=== PATIENT | female | born 1940 | race Caucasian/White ===

== ENCOUNTER → 2017-05-08 | Outpatient (CLI) | payer OTHER, BC | LOC: CIMAGING 15:40 | PROVIDERS: ATTEND Family Medicine | DX: S69.92XS Unspecified injury of left wrist, hand and finger(s), sequela (principal) | CPT/HCPCS: 73110-PO ==

== ENCOUNTER → 2017-07-18 | Outpatient (CLI) | payer OTHER, BC | LOC: FLAB 11:14 → EDSTATUS 11:15 | PROVIDERS: ATTEND Orthopaedic Surgery Orthopaedic Surgery of the Spine | DX: M40.209 Unspecified kyphosis, site unspecified (principal); M54.9 Dorsalgia, unspecified; M21.751 Unequal limb length (acquired), right femur ==

== ENCOUNTER 2017-10-18 16:32 | Inpatient (IN) | payer BC, OTHER ==
[2017-10-18] MEDS ORDERED: HYDROCODONE/APAP 5/325 TAB PO ONE (16:57)
--- NOTE | 2017-10-18 16:59 | EDPHY ---
H & P Stated Complaint: pt. slipped on ice landed on rt hip,rt rib and rt shoulder, parietal head Time Seen by Provider: 10/18/17 16:37 HPI/ROS: CHIEF COMPLAINT: Rib pain and hip pain History by patient HISTORY OF PRESENT ILLNESS: 77-year-old woman presents complaining of pain in the right side of her chest and her right hip after a fall where she slipped on ice while trying to get gas this morning. This occurred approximately 8 hr prior to admission. Patient states she hit her head on the side of a car but did not lose consciousness. Bystander helped her up and she was able to drive home. Subsequently she has been having increasing pain. Especially in her chest. It hurts when she coughs or breathes in. Although she is able to walk, her right hip hurts. She denies any neck pain. She denies any abdominal pain. She denies any numbness or weakness in her lower extremities. She does complain of mid and low back pain which is worse when she walks. She denies any knee pain. She has a history of bilateral knee replacements. She is not on any blood thinning medications including aspirin. She has not taken anything for the pain. REVIEW OF SYSTEMS: As in HPI, and all other systems reviewed and are negative Source: Patient - Personal History Tetanus Vaccine Date: 08/2005 - Medical/Surgical History Other PMH: Med hx-arthritis,diabetes,htn,cholesterol,scoliosis. 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 Head: normocephalic, atraumatic Eyes: Pupils equal and round, reactive to light, no pallor or injection. Extraocular movements intact Mouth: Mucous membranes moist. Neck: No bony tenderness, full range of motion Respiratory: Normal, effort, lungs are clear to auscultation. No wheezes, rales or rhonchi. Chest: Positive tenderness along bilateral lower sternal border and diffusely along right lower chest and back Cardiovascular: Regular rate and rhythm. S1, S2, no murmurs, gallops or rubs appreciated Gastrointestinal: Abdomen is soft and nontender, no masses, bowel sounds normal. Back: No CVA tenderness, positive bony tenderness along L spine and sacral area Neurological: Awake, alert and oriented x 3, no pronator drift, normal gait, no pronator drift Skin: Warm and dry, no rashes. Musculoskeletal: No deformities. Pelvis is stable and nontender Extremities: Upper extremities full range of motion, DP2+ bilat, full range of motion of right hip with some pain on extension, but no pain with internal external rotation, bilateral knees without tenderness or deformity and full range of motion Psychiatric: Patient has normal affect, there is no agitation. Constitutional: Initial Vital Signs Temperature (C) 37.0 C 10/18/17 16:38 Heart Rate 78 10/18/17 16:38 Respiratory Rate 18 10/18/17 16:38 Blood Pressure 173/77 H 10/18/17 16:38 O2 Sat (%) 93 10/18/17 16:38 O2 Delivery Mode Nasal Cannula O2 (L/minute) 1 Allergies/Adverse Reactions: oxycodone [From Percodan] Allergy (Severe, Verified 10/18/17 16:37) Anaphylaxis lanolin [Lanolin] Allergy (Intermediate, Verified 05/23/13 14:31) Rash naproxen [From Aleve] Allergy (Verified 10/18/17 18:13) tramadol Allergy (Verified 10/18/17 18:13) ANYTHING OFF OF A SHEEP Allergy (Intermediate, Uncoded 05/23/13 14:31) Rash Home Medications: Medication Instructions Recorded Atorvastatin Calcium [Lipitor 10 10 mg PO HS 03/16/10 mg (*)] metFORMIN HCL [Glucophage 500 mg 500 mg PO BIDMEAL 05/18/11 (*)] Cholecalciferol Vit D3 [Vitamin D3 1,000 units PO BID 10/18/17 (*)] Escitalopram Oxalate [Lexapro] 5 mg PO DAILY 10/18/17 Fluticasone Nasal [Flonase Nasal 1 sprays [place] BID PRN 10/18/17 [place]] Gabapentin [Neurontin 300 MG (*)] 300 mg PO HS 10/18/17 Ibandronate Sodium 150 mg PO Q30D 10/18/17 Losartan Potassium [Cozaar 50 mg 50 mg PO HS 10/18/17 (*)] Multivitamins W-Minerals [Thera M 1 each PO DAILY 10/18/17 Plus Tablet (*)] Ranitidine HCl [Zantac] 150 mg PO HS 10/18/17 Triamterene/Hydrochlorothiazid 1 each PO DAILY 10/18/17 [Triamterene-Hctz 37.5-25 mg Tb] Acetaminophen [Tylenol ES 500 mg 1,000 mg PO Q8H tab 10/20/17 (*)] Cyclobenzaprine [Flexeril 10 MG 5 mg PO TID PRN #30 tab 10/20/17 (*)] HYDROmorphone HCL [Dilaudid 2 mg 2 mg PO Q4H PRN #25 tab 10/20/17 (*)] Lidocaine 5% [Lidoderm 5% Patch 1 ea TD DAILY@2100 #30 patch 10/20/17 (*)] Patch Removal 1 ea TD DAILY@0900 patch 10/20/17 Medical Decision Making - Diagnostics Imaging: Discussed imaging studies w/ senior technical analyst Radiologist ED Course/Re-evaluation: 77-year-old woman with history of osteopenia and old back fractures presents after a fall with right chest pain, low back pain and right hip pain. Patient complained of significant pain. She was given [place] with improvement but not relief of her pain. CT of the C-spine chest and abdomen and pelvis was performed. I discussed results of the CT with the radiologist. The significant finding is that she has buckle fractures of ribs 3, 4, and 5. There is no evidence of hemopneumothorax. C-spine CT was read as negative. Patient was noted to have an old compression fracture in her lumbar spine as well as a possible osteophyte fracture at the right superior T6. There is no evidence of fracture of pelvis or hip. Patient incidental finding of increase in 1 of 4 pulmonary nodules from 6 x 6 mm to 7 x 8 mm and the radiologist recommends a repeat scan in 1 year. These findings including the pulmonary nodule or communicated to the patient and her son. Because of the patient's age and her multiple rib fractures and the mortality associated with this although she is hemodynamically stable and not hypoxic we will observe her overnight. I discussed the case with Dr. Akins, trauma surgeon operations specialists. He requests patient transferred to [facility] Emergency Department for further evaluation. I discussed the case with Dr. Hylton at [facility] who accepts the patient in transfer. - Data Points Laboratory Results: Laboratory Results 10/18/17 18:45 10/19/17 05:05 Medications Given: Discontinued Medications Acetaminophen (Tylenol) 1,000 mg PO Q8H [facility] Stop: 04/16/18 20:59 Last Admin: 10/20/17 05:21 Dose: 1,000 mg Hydrocodone Bitart/Acetaminophen ([place] 5/325) 1 tab PO EDNOW ONE Stop: 10/18/17 16:58 Last Admin: 10/18/17 17:00 Dose: 1 tab Atorvastatin Calcium (Lipitor) 10 mg PO HS [facility] Stop: 04/17/18 20:59 Last Admin: 10/19/17 20:19 Dose: 10 mg Cholecalciferol (Vitamin D) 1,000 units PO BID [facility] Stop: 04/17/18 08:59 Last Admin: 10/20/17 08:33 Dose: 1,000 units Cyclobenzaprine HCl (Flexeril) 5 mg PO TID PRN PRN Reason: Spasms Stop: 04/16/18 21:59 Last Admin: 10/20/17 08:33 Dose: 5 mg Enoxaparin Sodium (Lovenox) 30 mg SC BID [facility] Stop: 04/16/18 20:59 Last Admin: 10/20/17 08:34 Dose: 30 mg Escitalopram Oxalate (Lexapro) 5 mg PO DAILY [facility] Stop: 04/17/18 08:59 Last Admin: 10/20/17 08:33 Dose: 5 mg Famotidine (Pepcid) 20 mg PO HS [facility] Stop: 04/17/18 20:59 Last Admin: 10/19/17 20:19 Dose: 20 mg Fentanyl (Sublimaze) 25 mcg IVP EDNOW ONE Stop: 10/18/17 18:41 Last Admin: 10/18/17 18:51 Dose: 25 mcg Fentanyl (Sublimaze) 50 mcg IVP EDNOW ONE Stop: 10/18/17 21:09 Last Admin: 10/18/17 21:19 Dose: 50 mcg Gabapentin (Neurontin) 300 mg PO HS [facility] Stop: 04/17/18 20:59 Last Admin: 10/19/17 20:19 Dose: 300 mg Hydromorphone HCl (Dilaudid) 0.2 mg IVP Q1H PRN PRN Reason: Pain, Severe Unable to Take PO Stop: 10/28/17 20:51 Last Admin: 10/20/17 08:32 Dose: 0.2 mg Lactated Ringer's (Lr) 1,000 mls @ 75 mls/hr IV CONT [facility] Stop: 04/16/18 21:29 Last Admin: 10/18/17 22:20 Dose: 1,000 mls Lidocaine (Lidoderm 5%) 1 ea TD DAILY@2100 [facility] Stop: 04/16/18 20:59 Last Admin: 10/19/17 20:20 Dose: 1 ea Losartan Potassium (Cozaar) 50 mg PO DAILY [facility] Stop: 04/17/18 08:59 Last Admin: 10/20/17 08:32 Dose: 50 mg Metformin HCl (Glucophage) 500 mg PO BIDMEAL [facility] Stop: 04/17/18 07:59 Last Admin: 10/20/17 08:33 Dose: 500 mg Miscellaneous Information (Patch Removal) 1 ea TD DAILY@0900 [facility] Stop: 04/17/18 08:59 Last Admin: 10/20/17 08:34 Dose: 1 ea Multivitamins/Minerals (Thera M Plus Tablet) 1 each PO DAILY [facility] Stop: 04/17/18 08:59 Last Admin: 10/20/17 08:33 Dose: 1 each Ondansetron HCl (Zofran) 4 mg IVP Q4HRS PRN PRN Reason: Nausea/Vomiting, Can't Take PO Stop: 04/16/18 20:51 Last Admin: 10/19/17 11:44 Dose: 4 mg Triamterene/HCTZ (Maxzide-25) 1 each PO DAILY [facility] Stop: 04/17/18 08:59 Last Admin: 10/20/17 08:33 Dose: 1 each Departure - Departure Disposition: [facility] Acute Clinical Impression: Pulmonary nodule, Osteophyte determined by x-ray Multiple fractures of ribs Qualifiers: Encounter type: initial encounter Fracture type: closed Laterality: right Qualified Code(s): S22.41XA - Multiple fractures of ribs, right side, initial encounter for closed fracture Condition: Good
[2017-10-18] MEDS ORDERED: fentaNYL 100 MCG/2 ML INJ IVP ONE ×2 (18:40→21:08)
[2017-10-18 18:52] LABS: PLATELET COUNT 336 10^3/uL (150-400)
[2017-10-18] MEDS ORDERED: ONDANSETRON 4 MG/2 ML VIAL IVP PRN (20:52)
[2017-10-18] MEDS ORDERED: FLUTICASONE NASAL 120 SPRAYS/16 GM MDI EACHNARE PRN (21:02)
[2017-10-18] MEDS ORDERED: LR 1,000 ML IV SCH (21:30)
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
[2017-10-18] MEDS: ENOXAPARIN 30 MG/0.3 ML SYR SC SCH (22:20)
[2017-10-18] MEDS: CYCLOBENZAPRINE 10 MG TAB PO PRN (22:21)
[2017-10-18] MEDS: ACETAMINOPHEN 500 MG TAB PO SCH (22:21)
[2017-10-18] MEDS: LIDOCAINE 5% 1 EA PATCH TD SCH (22:22)
[2017-10-18] MEDS: HYDROmorphONE/DILAUDID 1 MG/ML INJ IVP PRN (23:26)
[2017-10-19] MEDS ORDERED: D50W 25 GM/50 ML SYR IVP PRN (00:51)
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
[2017-10-19] MEDS: HYDROmorphONE/DILAUDID 1 MG/ML INJ IVP PRN ×5 (01:52→17:48)
[2017-10-19] MEDS: ACETAMINOPHEN 500 MG TAB PO SCH ×3 (04:14→20:19)
[2017-10-19] MEDS: MULTIVITAMINS W-MINERALS 1 EACH TAB PO SCH (08:39)
[2017-10-19] MEDS: ESCITALOPRAM OXALATE 10 MG TAB PO SCH (08:39)
[2017-10-19] MEDS: LOSARTAN POTASSIUM 50 MG TAB PO SCH (08:39)
[2017-10-19] MEDS: CHOLECALCIFEROL VIT D3 1,000 UNITS TAB PO SCH ×2 (08:40→20:19)
[2017-10-19] MEDS: metFORMIN HCL 500 MG TAB PO SCH ×2 (08:40→17:55)
[2017-10-19] MEDS: TRIAMTERENE/HCTZ 37.5/25 1 EACH TAB PO SCH (08:40)
[2017-10-19] MEDS: ENOXAPARIN 30 MG/0.3 ML SYR SC SCH ×2 (08:40→20:21)
--- NOTE | 2017-10-19 08:56 | TRAUMAPN ---
Assessment/Plan: Tertiary exam Slept after 1000mg tylenol/IV dialudid xrays reviewed no additional concerns Awake no concerns EOMI RRR CTA posterior chest point/regional tenderness Soft NTND Extremities 2+ plse bilat Doing well post rib fx IS/OOB PT/OT eval as appropriate Likely d/c 10/20 Convert to oral pain med regimen (has norco at home for back pain) Objective: Vital Signs Temp Pulse Resp BP Pulse Ox 36.7 C 62 18 142/64 H 94 10/19/17 07:15 10/19/17 07:15 10/19/17 07:15 10/19/17 08:40 10/19/17 07:15 Laboratory Results 10/19/17 05:05 10/18/17 10/19/17 10/20/17 05:59 05:59 05:59 Intake Total 1295 Output Total 1100 Balance 195
[2017-10-19] MEDS: PATCH REMOVAL 1 EA PATCH TD SCH (09:16)
[2017-10-19] MEDS: CYCLOBENZAPRINE 10 MG TAB PO PRN (09:20)
--- NOTE | 2017-10-19 16:01 | HOSPPROG ---
Hospitalist Progress Note Assessment/Plan: Assessment/Plan: Pleasant 77-year-old female with multiple medical issues status post mechanical fall now with right lateral chest wall pain. Consult by Trauma Service for assistance with medical management by problem. # DM 2 controlled # HTN controlled # Acute rib pain -as per primary team patient has Lidoderm patch, gabapentin, IV Dilaudid, [place], Flexeril. Encourage patient to notify RN at if her pain should escalate is a will be easier to manage. 4. Chronic back pain-pain management as noted above 5. GERD agree with continuing famotidine. 6. Osteoporosis-continue calcium supplementation. Unable to elicit from patient if she is aware if she had ever been treated with bisphosphonates oral or infusion. Continue with calcium and vitamin-D supplementation. 7. Obesity (BMI of 37.7) - mobilize. ADA diet. 8. HLD-continue patient's statin agree. 9. Depression-continue Lexapro. 10. History of DVT-patient reports these occurred after fractures and immobility. Lovenox has been ordered. No evidence of DVT clinically. 11. Lung nodules-this was already reviewed with the patient by Dr. Akins. Patient is aware that she needs to have a 1 year follow-up CT. FEN - IV fluids as per primary team. Monitor electrolytes and replace as needed. ADA diet recommended. PPx - Lovenox ordered. SCDs as tolerated. COR - DNR DNI. Patient's son Sha Parrish is MD VOSS. Dispo -patient continues to be in pain and has been transitioned to inpatient status Subjective: Continues to have severe rib pain. She denies any shortness of breath. Pain is controlled while in bed is increased with movement or deep breathing. She has been compliant with her incentive spirometer. She is tolerating a diet. Her blood sugars have been stable Objective: Vital Signs Temp Pulse Resp BP Pulse Ox 36.9 C 83 16 139/80 H 90 L 10/19/17 15:40 10/19/17 15:40 10/19/17 15:40 10/19/17 15:40 10/19/17 15:40 Laboratory Results 10/19/17 05:05 10/18/17 10/19/17 10/20/17 05:59 05:59 05:59 Intake Total 1295 1200 Output Total 1100 800 Balance 195 400 - Physical Exam Constitutional: no apparent distress, appears nourished, not in pain Cardiovascular: regular rate and rhythym, no murmur, rub, or gallop Respiratory: no respiratory distress, no rales or rhonchi, clear to auscultation Gastrointestinal: normoactive bowel sounds, soft, non-tender abdomen, no palpable masses, No guarding, No rebound Neurologic: AAOx3, sensation intact bilaterally ICD10 Worksheet Patient Problems: Problems Problem Status Onset Multiple fractures of ribs Acute Pulmonary nodule Acute Osteophyte determined by x-ray Acute
--- NOTE | 2017-10-19 16:23 | PDMN ---
Medical Necessity Medical necessity: change to IP; los>2mn for continued severe rib pain, s/p mechanical fall, increased with movement or deep breathing; requires IV dilaudid, Lidoderm patch, gabapentin, and oral meds; comorbid DM, HTN, GERD, chronic back pain, obsesity, osteoporosis, lung nodules, and hx DVT; per order and progress note 10/19/17
--- NOTE | 2017-10-19 16:38 | ASMTCMCOM ---
CM Note CM Note Notes: Pt has rib fxs after fall on ice, resides w adult son. Pt does not qualify for [facility] inpatient rehab. Therapies clear pt for home. CM to monitor progress in case there are any d/c needs. Date Signed: 10/19/2017 04:38 PM Electronically Signed By:PACO Slade
[2017-10-19] MEDS: LIDOCAINE 5% 1 EA PATCH TD SCH (20:20)
[2017-10-19] MEDS ORDERED: GABAPENTIN 300 MG CAP PO SCH (21:00)
[2017-10-19] MEDS ORDERED: ATORVASTATIN CALCIUM 10 MG TAB PO SCH (21:00)
[2017-10-19] MEDS ORDERED: FAMOTIDINE 20 MG TAB PO SCH (21:00)
[2017-10-20] MEDS: CYCLOBENZAPRINE 10 MG TAB PO PRN ×2 (01:51→08:33)
[2017-10-20] MEDS: HYDROmorphONE/DILAUDID 1 MG/ML INJ IVP PRN ×2 (01:51→08:32)
[2017-10-20] MEDS: ACETAMINOPHEN 500 MG TAB PO SCH (05:21)
[2017-10-20 07:29] VITALS: BP 135/72; PULSE 62; RESP 16; TEMP 98
[2017-10-20] MEDS: LOSARTAN POTASSIUM 50 MG TAB PO SCH (08:32)
[2017-10-20] MEDS: ESCITALOPRAM OXALATE 10 MG TAB PO SCH (08:33)
[2017-10-20] MEDS: metFORMIN HCL 500 MG TAB PO SCH (08:33)
[2017-10-20] MEDS: CHOLECALCIFEROL VIT D3 1,000 UNITS TAB PO SCH (08:33)
[2017-10-20] MEDS: TRIAMTERENE/HCTZ 37.5/25 1 EACH TAB PO SCH (08:33)
[2017-10-20] MEDS: MULTIVITAMINS W-MINERALS 1 EACH TAB PO SCH (08:33)
[2017-10-20] MEDS: ENOXAPARIN 30 MG/0.3 ML SYR SC SCH (08:34)
[2017-10-20] MEDS: PATCH REMOVAL 1 EA PATCH TD SCH (08:34)
[2017-10-20 08:44] VITALS: O2SAT 81
--- NOTE | 2017-10-20 09:31 | TRAUMAPN ---
Assessment/Plan: 10/20/2017 PAD#2 Assessment: Doing well, Pain controlled, chest stable, SAT dropped when she holds her breath due to pain but otherwise 90-91 Plan: Discharge Subjective: I'm ready to go home Objective: Vital Signs Temp Pulse Resp BP Pulse Ox 36.7 C 62 16 135/72 H 81 L 10/20/17 07:28 10/20/17 07:28 10/20/17 07:28 10/20/17 08:33 10/20/17 08:44 10/19/17 10/20/17 10/21/17 05:59 05:59 05:59 Intake Total 950 Output Total 950 300 Balance 0 -300 Physical Exam - Physical Exam General Appearance: WD/WN, alert, no apparent distress Neck: non-tender, full range of motion Respiratory: lungs clear, normal breath sounds Cardiac/Chest: regular rate, rhythm Abdomen: normal bowel sounds, non-tender, soft Pelvic Exam: deferred Rectal: deferred Back: Normal inspection Skin: normal color, warm/dry Time Spent w/Patient (minutes): 15
--- NOTE | 2017-10-20 09:52 | ASMTCMCOM ---
CM Note CM Note Notes: Pt medically stable for d/c no CM d/c needs identified. Date Signed: 10/20/2017 09:51 AM Electronically Signed By:PACO Slade
--- NOTE | 2017-10-20 10:29 | GDS ---
[f rep st] DISCHARGE SUMMARY DISCHARGE DIAGNOSES: 1. Right chest trauma with possible right rib fracture. History of multiple old rib fractures. 2. History of tobacco use. 3. Hyperlipidemia. 4. Depression. 5. Chronic pain due to lumbar disk protrusion. 6. Osteoporosis. 7. Hypertension. 8. Type 2 diabetes. CONDITION ON DISCHARGE: Improved. DISPOSITION: Home. DIET RESTRICTION: Recommended 1800 calorie ADA diet with regular texture. DISCHARGE MEDICATIONS: For pain control, Tylenol 1000 mg every 8 hours, Flexeril 10 mg 3 times a day as needed for spasms, Dilaudid 2 mg every 4 hours as needed for breakthrough pain, 5% Lidoderm patch. She will continue her Lipitor 10 mg q.h.s., metformin 500 mg twice a day, ibandronate sodium 150 mg every 30 days, Neurontin 300 mg q.h.s., Flonase nasal spray 1 spray each nostril twice a day, Lexapro 5 mg daily, Thera M Plus multivitamins 1 tablet daily, Cozaar 50 mg q.h.s., triamterene hydrochlorothiazide 37.5/25 daily, Zantac 150 mg daily, her vitamin D3 1,000 units twice a day. Because she will be using high-dose Tylenol, her [place] is suspended. ACTIVITIES: Restricted to gentle walking. INSTRUCTIONS: She will follow up her primary care physician in 1 week (Dr. Frederic Ackerman). I have suggested that she make an appointment for followup CAT scan in 1 year because of her pulmonary nodules, smoking history, and radiation exposure. She understands and will comply with that suggestion. HOSPITAL COURSE: The patient was admitted for pain control. When her pain is not controlled, her saturations do drop, but when it is controlled she is very comfortable, and her saturations are 90% to 91%. I do not feel she needs oxygen at this time nor does she. /[id number]/MODL MTDD
--- NOTE | 2017-10-20 10:37 | ASDISCHSUM ---
Discharge Information Plan Status:Home with No Needs Medically Cleared to Leave: Discharge Date:10/20/2017 10:25 AM CM D/C Disposition:Home, Routine, Self-Care ADT D/C Disposition:Home, Routine, Self-Care Projected Discharge Date:10/20/2017 10:25 AM Transportation at D/C: Discharge Delay Reason: Follow-Up Date:10/20/2017 10:25 AM Discharge Slot: Final Diagnosis: Placement Information Patient Contact Information Contact Name:ARVIN Relationship:Son Address:[address] City:[place] Alternate Phone: [facility]/Zip Code:[place] [address] Email: Financial Information Financial Class: Primary Plan Desc:MEDICARE OUTPATIENT Primary Plan Number:[id number] Secondary Plan Desc: OUT OF STATE [facility] Secondary Plan Number:[id number] Assessment Information [facility] CM Progress Note CM Note CM Note Notes: Pt has rib fxs after fall on ice, resides w adult son. Pt does not qualify for [facility] inpatient rehab. Therapies clear pt for home. CM to monitor progress in case there are any d/c needs. Date Signed: 10/19/2017 04:38 PM Electronically Signed By:PACO Slade [facility] CM Progress Note CM Note CM Note Notes: Pt medically stable for d/c no CM d/c needs identified. Date Signed: 10/20/2017 09:51 AM Electronically Signed By:PACO Slade Intervention Information Intervention Type:*ROBLERO-Signed Date of Service:10/19/2017 10:07 AM Patient Type:Observation Staff Member:Jocelyn Prater Hours: Discipline: Severity: Comment:
[2017-11-08] MEDS ORDERED: IBANDRONATE SODIUM 150 MG PO SCH (09:00)
== END 2017-10-20 10:25 | disposition home or self-care (01) | DRG 185 ==
LOC: CED 16:32 → F3N 21:39 → OBSVTOIN 10-19 16:14
PROVIDERS: ADMIT Surgery; ATTEND Surgery
DX: S22.41XA Multiple fractures of ribs, right side, initial encounter for closed fracture (principal); E78.5 Hyperlipidemia, unspecified; F32.9 Major depressive disorder, single episode, unspecified; G89.29 Other chronic pain; M51.26 Other intervertebral disc displacement, lumbar region; M81.0 Age-related osteoporosis without current pathological fracture; E11.9 Type 2 diabetes mellitus without complications; W00.0XXA Fall on same level due to ice and snow, initial encounter; Y92.524 Gas station as the place of occurrence of the external cause; E66.9 Obesity, unspecified; K21.9 Gastro-esophageal reflux disease without esophagitis; I10 Essential (primary) hypertension; Z68.37 Body mass index [BMI] 37.0-37.9, adult; Z86.718 Personal history of other venous thrombosis and embolism; Z79.84 Long term (current) use of oral hypoglycemic drugs; Z87.891 Personal history of nicotine dependence; Z96.653 Presence of artificial knee joint, bilateral
CPT/HCPCS: 71250-PO; 72125-PO; 74176-PO; 80048-PO; 85025-PO; 96374; 97116-GP; 97161-GP; 97165-GO; G0378; G8978-GP-CI; G8979-GP-CH; G8979-GP-CI; G8980-GP-CI; G8987-GO-CI; G8988-GO-CI; G8989-GO-CI; J1170; J1650; J3010